=== PATIENT | female | born 1960 | race Caucasian/White ===

== ENCOUNTER 2017-09-24 10:14 | Observation (INO) | payer BC ==
[~2017-09-24] VITALS: Ht 177.8 cm; Wt 113.9 kg
[~2017-09-24 10:14] MED LIST: ALBU8.5H2 IH; ASPI-875 PO; BENZ200C25 PO; CYAN500T44 PO; D-ME120L26 PO; DIPH25TA82 PO; FLUT1DIS26 IH; HYDR50CA3 PO; IBP800T PO; IOPHEN C NR; LEVA1.25 IH; LEVO750T6 PO; LORA10TA7 PO; METH4TAB PO; MTP100TCR PO; OMEG-59 PO; OMEP20CA12 PO; SIMV40TA4 PO
[2017-09-24] MEDS ORDERED: LACTATED RINGERS 1,000 ML IV ONE (10:28)
--- NOTE | 2017-09-24 10:37 | ED Fall/Injury ---
General Chief Complaint: Trauma-Non Activation Stated Complaint: FALL Source: patient, EMS History of Present Illness Time seen by provider: 10:15 Initial Comments PT ARRIVES VIA EMS FROM HOME--NOT IMMOBILIZED AND SITTING UP PT STATES HER BOOT CAUGHT ON A STEP AND SHE FELL DOWN AT LEAST 6 STEPS, HITTING HER FACE ON THE WALL WHEN SHE FELL NO LOSS OF CONSCIOUSNESS C/O SEVERE PAIN TO FACE, ESPECIALLY HER MOUTH--HAS SIGNIFICANT MOUTH AND LIP TRAUMA NO NECK OR BACK PAIN --BUT DOES HAVE PAIN IN LOWER BACK WHEN LOG-ROLLED NO EXTREMITY PAIN --BUT DOES HAVE SIGNIFICANT PAIN TO LEFT KNEE AND LEFT LOWER LEG ON EXAM. NO PARESTHESIAS OR MOTOR DEFICITS NO HEADACHE NO VISION CHANGES NO DIZZINESS NO CHEST PAIN OR SHORTNESS OF BREATH PT IMMEDIATELY PLACED IN CERVICAL COLLAR AND LAID FLAT PCP: DR. GUZMAN Allergies and Home Medications Allergies Uncoded Allergies: SULFA (Allergy, Unknown, 12/09/12) Home Medications Albuterol 8.5 Gm Hfa.aer.ad, 8.5 GM IH Q6H, (Reported) 2 PUFFS Aspirin 81 Mg Tablet.dr, 81 MG PO, (Reported) Benzonatate 200 Mg Capsule, 1 EACH PO Q8HR, #20 Prescribed by: TERE MURDOCK on 12/10/12 0211 Cyanocobalamin (Vitamin B-12) 500 Mcg Tablet, 500 MCG PO, (Reported) D-Methorphan/Acetamin/Doxylamn 120 Ml Liquid, 120 ML PO, (Reported) Diphenhydramine Hcl 25 Mg Tablet, 2 EACH PO DAILY, (Reported) Fluticasone/Salmeterol 1 Disk Inhp, 1 PUFF IH DAILY, (Reported) 1 PUFF Hydroxyzine Pamoate 50 Mg Capsule, 0.5 EACH PO DAILY, (Reported) Ibuprofen 800 Mg Tablet, 1 EACH PO TID PRN, #30 Prescribed by: TERE MURDOCK on 12/10/12 0211 Levalbuterol Hcl 1.25 Mg/0.5 Ml Vial.neb, 1.25 MG IH, (Reported) Levofloxacin 750 Mg Tablet, 750 MG PO, (Reported) Lifitegrast 1 Each Droperette, (Reported) Loratadine 10 Mg Tablet, 10 MG PO, (Reported) Metformin HCl 500 Mg Tablet, (Reported) Methylprednisolone 4 Mg/Dose-Pack Tab.ds.pk, 0 PO UD, (Reported) Metoprolol Succinate 100 Mg Tab.sr.24h, 1 EACH PO DAILY, (Reported) Independence-3 Fatty Acids/Fish Oil 1 Each Capsule, 1 EACH PO, (Reported) Omeprazole 20 Mg Capsule.dr, 1 CAP PO DAILY, #30 (Reported) Simvastatin 40 Mg Tablet, 60 MG PO, (Reported) [Iophen-C Nr] , (Reported) Constitutional: no symptoms reported Eyes: No Symptoms Reported Ears, Nose, Mouth, Throat: see HPI Respiratory: no symptoms reported Cardiovascular: no symptoms reported Gastrointestinal: no symptoms reported Genitourinary: no symptoms reported Musculoskeletal: see HPI Skin: see HPI Psychiatric/Neurological: No Symptoms Reported Past Lxugjfy-Unwbvz-Tybjun Hx Patient Social History Recent Foreign Travel: No Contact w/Someone Who Travel: No Immunizations Up To Date Tetanus Booster (TDap): Unknown Respiratory Respiratory Disorders: Asthma Reproductive System Hx Reproductive Disorders: No Sexually Transmitted Disease: No HIV/AIDS: No 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 MILD TENDERNESS TO CHIN, BUT NO TENDERNESS TO ANGLE OF MANDIBLE AND ABLE TO OPEN MOUTH. UPPER FRONT TEETH WITH OBVIOUS DEFORMITIES. TENDERNESS, SWELLING AND BRUISING TO TIP OF NOSE, WELL LEFT LATERAL BROW AREA) Neck: tender lateral (SLIGHT), tender midline (SLIGHT), other (IMMEDIATELY PLACED IN CERVICAL COLLAR ON ARRIVAL) Cardiovascular: normal peripheral pulses, regular rate, rhythm, no edema, no JVD, no murmur Respiratory: chest non-tender, normal breath sounds, no respiratory distress, no accessory muscle use Peripheral Pulses: 1+ Dorsalis Pedis (R), 1+ Left Dors-Pedis (L), 1+ Radial Pulses (R), 1+ Radial Pulses (L) Gastrointestinal: normal bowel sounds, non tender, soft, no organomegaly, no pulsatile mass Back: vertebral tenderness (MID LUMBAR AREA ON RIGHT), other (RIGHT POSTERIOR/ LOWER RIB-CVA AREA ) Extremities: normal capillary refill, other (ABRASIONS TO BILATERAL KNEES, ABRASION TO RIGHT POSTERIOR FOREARM, MARKED TENDERNESS TO LEFT KNEE AND ANTERIOR TIB-FIB AREA, WITH MODERTE BRUISING AND SWELLING TO UPPER HALF OF LEFT ANTERIOR TIB-FIB AREA. 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, no motor/sensory deficits, alert, normal mood/affect, oriented x 3 Skin: normal color, warm/dry, ecchymosis, other (MOUTH/LIP LACERATION NOTED ABOVE) Vivi Coma Score Best Eye Response: (4) Open Spontaneously Best Verbal Response: (5) Oriented Best Motor Response: (6) Obeys Commands Vivi Total: 15 Progress/Results/Core Measures Results/Orders Lab Results Laboratory Tests Test 09/24/17 10:39 Range/Units White Blood Count 10.4 4.3-11.0 10^3/uL Red Blood Count 4.46 4.35-5.85 10^6/uL Hemoglobin 13.8 11.5-16.0 G/DL Hematocrit 40 35-52 % Mean Corpuscular Volume 90 80-99 FL Mean Corpuscular Hemoglobin 31 25-34 PG Mean Corpuscular Hemoglobin Concent 35 32-36 G/DL Red Cell Distribution Width 12.8 10.0-14.5 % Platelet Count 257 130-400 10^3/uL Mean Platelet Volume 11.2 H 7.4-10.4 FL Neutrophils (%) (Auto) 69 42-75 % Lymphocytes (%) (Auto) 21 12-44 % Monocytes (%) (Auto) 8 0-12 % Eosinophils (%) (Auto) 1 0-10 % Basophils (%) (Auto) 0 0-10 % Neutrophils # (Auto) 7.2 1.8-7.8 X 10^3 Lymphocytes # (Auto) 2.2 1.0-4.0 X 10^3 Monocytes # (Auto) 0.9 0.0-1.0 X 10^3 Eosinophils # (Auto) 0.1 0.0-0.3 10^3/uL Basophils # (Auto) 0.0 0.0-0.1 10^3/uL Prothrombin Time 12.4 12.2-14.7 SEC INR Comment 0.9 0.8-1.4 Activated Partial Thromboplast Time 26 24-35 SEC Sodium Level 140 135-145 MMOL/L Potassium Level 4.1 3.6-5.0 MMOL/L Chloride Level 107 98-107 MMOL/L Carbon Dioxide Level 21 21-32 MMOL/L Anion Gap 12 5-14 MMOL/L Blood Urea Nitrogen 16 7-18 MG/DL Creatinine 0.97 0.60-1.30 MG/DL Estimat Glomerular Filtration Rate 59 BUN/Creatinine Ratio 16 Glucose Level 110 H 70-105 MG/DL Calcium Level 9.2 8.5-10.1 MG/DL Total Bilirubin 0.9 0.1-1.0 MG/DL Aspartate Amino Transf (AST/SGOT) 25 5-34 U/L Alanine Aminotransferase (ALT/SGPT) 24 0-55 U/L Alkaline Phosphatase 66 40-136 U/L Total Protein 7.1 6.4-8.2 GM/DL Albumin 4.3 3.2-4.5 GM/DL My Orders Orders - FLO MCGRATH K DO Saline Lock/Iv-Start (09/24/17 10:28) Monitor-Rhythm Ecg Trace Only (09/24/17 10:28) Ct Head/Face/Cervical Wo (09/24/17 10:28) Ct Thoracic/Lumbar Spine Wo (09/24/17 10:28) Cbc With Automated Diff (09/24/17 10:28) Comprehensive Metabolic Panel (09/24/17 10:28) Protime With Inr (09/24/17 10:28) Partial Thromboplastin Time (09/24/17 10:28) Chest 1 View, Ap/Pa Only (09/24/17 10:28) Tibia/Fibula, Left, 2 Views (09/24/17 10:28) Knee, Left, 3 Views (09/24/17 10:28) Pelvis (09/24/17 10:28) Saline Lock/Iv-Start (09/24/17 10:28) Lactated Ringers (Lr 1000 Ml Iv Solution (09/24/17 10:28) Ct Chest/Abdomen/Pelvis W (09/24/17 10:37) Iohexol Injection (Omnipaque 350 Mg/Ml 1 (09/24/17 10:45) Ns (Ivpb) (Sodium Chloride 0.9% Ivpb Bag (09/24/17 10:45) Dipht,Pertuss(Acell),Tet Adult (Boostrix (09/24/17 10:45) Fentanyl Injection (Sublimaze Injection (09/24/17 10:43) Cefazolin Injection (Ancef Injection) (09/24/17 12:00) Lidocaine/Epi 2% 1:100,000 (Xylocaine/Ep (09/24/17 12:15) Bupivacaine 0.5% Injection (Sensorcaine (09/24/17 12:57) Medications Given in ED Current Medications Medications Dose Ordered Sig/Eladio Route Start Time Stop Time Status Last Admin Dose Admin Bupivacaine HCl 30 ml STK-MED ONCE .ROUTE 09/24/17 12:57 09/24/17 13:06 DC 09/24/17 13:17 5 ML Cefazolin Sodium 1000 mg/Sodium Chloride 50 ml @ 100 mls/hr ONCE ONCE IV 09/24/17 12:00 09/24/17 12:29 DC 09/24/17 12:21 100 MLS/HR Diphtheria/ Tetanus/Acell Pertussis 0.5 ml ONCE ONCE IM 09/24/17 10:45 09/24/17 10:46 DC 09/24/17 11:51 0.5 ML Iohexol 100 ml ONCE ONCE IV 09/24/17 10:45 09/24/17 10:46 DC 09/24/17 11:14 100 ML Lactated Ringer's 1,000 ml @ 0 mls/hr Q0M ONCE IV 09/24/17 10:28 09/24/17 10:31 DC 09/24/17 10:36 1,000 MLS/HR Lidocaine/ Epinephrine 20 ml ONCE ONCE INJ 09/24/17 12:15 09/24/17 12:16 DC 09/24/17 13:16 20 ML Sodium Chloride 100 ml ONCE ONCE IV 09/24/17 10:45 09/24/17 10:46 DC 09/24/17 11:14 80 ML Vital Signs/I&O Vital Sign - Last 12Hours 09/24/17 10:14 Temp 98.0 Pulse 78 Resp 18 B/P (MAP) 197/97 Intake and Output 09/25/17 00:00 Intake Total 1050 ml Balance 1050 ml Progress Note : Progress Note NO DETERIORATION IN PTS' CONDITION DURING ER STAY C-COLLAR REMOVED AT [address] RESULTS OBTAINED. Diagnostic Imaging Comments CT HEAD/MAXILLOFACIALS /CERVICAL SPINE-NO ACUTE INTRACRANIAL FRACTURES, FRACTURES OF NASAL SPINE AND SEPTUM WITH DISPLACEMENT; NO CERVICAL SPINE ACUTE PROCESS--PER RADIOLOGIST REPORT @ 1150 CT THORACIC/LUMBAR SPINE--FX L2 RIGHT TRANSVERSE PROCESS, OLD APPEARING FRACTURE L1 RIGHT TRANSVERSE PROCESS--PER RADIOLOGIST REPORT @ 1155 XRAYS: CXR--NO ACUTE PROCESS PELVIS--NO ACUTE PROCESS LEFT KNEE--NO ACUTE PROCESS LEFT TIB-FIB--NO ACUTE PROCESS ALL PER RADIOLOGIST REPORTS @ 1202 CT CHEST/ABDOMEN/PELVIS--NO ACUTE PROCESS, PER RADIOLOGIST REPORT @ 1212 Reviewed: Reviewed by Me Departure Communication (Admissions) Progress Notes 1049--SPOKE WITH DR. GENAO, HE IS AVAILABLE FOR CONSULT THIS WEEKEND--WILL CALL HIM BACK WITH TEST RESULTS 1144/1145--PAGED/SPOKE WITH DR. RODRIGUEZ, ACCEPTS PT FOR ADMIT. WOULD LIKE DR. GENAO TO DO REPAIR OF LIP LACERATION. 1205--SPOKE WITH DR. GENAO AGAIN. DISCUSSED CT SCAN FINDINGS, HE WILL BE IN TO SEE PT 1230--DR. GENAO HERE TO DO REPAIR OF LIP LACERATION 1325--UPDATE GIVEN TO DR. RODRIGUEZ, HE WOULD LIKE ORTHO CONSULT FOR L2 TRANSVERSE PROCESS FRACTURE 1335--SPOKE WITH DR. AWAD AND INFORMED HIM OF CONSULT. Impression Impression: Primary Impression: S/P FALL DOWN STAIRS Additional Impressions: Facial trauma COMPLEX UPPER LIP LACERATION Dental injury Nasal bone fractures FRACTURE L2 RIGHT TRANSVERSE PROCESS Contusion of left knee and lower leg Disposition: ADMITTED INPATIENT Condition: Stable Admissions Decision to Admit Reason: Admit from ER (Trauma) Decision to Admit/Date: Sep 24, 2017 Time/Decision to Admit Time: 11:45 Departure-Patient Inst. Referrals: SANTIAGO GUZMAN DO (PCP/Family) Primary Care Physician FLO MCGRATH DO Sep 24, 2017 10:37
[2017-09-24] MEDS ORDERED: fentaNYL INJECTION 100 MCG/2 ML AMP IVP STA (10:43)
[2017-09-24] MEDS ORDERED: LIFI1DRO OU (10:43)
[2017-09-24] MEDS ORDERED: METF500T4 PO (10:43)
--- OUTSIDE RECORDS SUMMARY | 2017-09-24 10:43 | XMS REPORT | Continuity of Care Document ---
Author Author [facility] Organization [facility] Address Unknown Phone Unavailable Allergies Medications Problems Procedures Results Encounters ACCT No. Visit Date/Time Discharge Status Pt. Type Provider Facility Loc./Unit Complaint [id number] 03/28/2013 10:23:00 2012 23:59:59 CLS Outpatient
[2017-09-24] MEDS ORDERED: NS 100 ML (IVPB) BAG IV ONE (10:45)
[2017-09-24] MEDS ORDERED: TETANUS,DIPTH,PERTUSS P/F (BOOSTRIX) 0.5 ML VIAL IM ONE (10:45)
[2017-09-24] MEDS ORDERED: IOHEXOL 350 MG/ML 100 ML (OMNIPAQUE 350) VIAL IV ONE (10:45)
[2017-09-24 10:50] LABS: BASOPHILS % (AUTO) 0 % (0-10); EOSINOPHILS # (AUTO) 0.1 10^3/uL (0.0-0.3); EOSINOPHILS % (AUTO) 1 % (0-10); LYMPHOCYTES # (AUTO) 2.2 X 10^3 (1.0-4.0); LYMPHOCYTES % (AUTO) 21 % (12-44); MEAN CORPUSCULAR HEMOGLOBIN 31 PG (25-34); MEAN CORPUSCULAR HGB CONC 35 G/DL (32-36); MEAN CORPUSCULAR VOLUME 90 FL (80-99); MEAN PLATELET VOLUME 11.2 FL (7.4-10.4); MONOCYTES # (AUTO) 0.9 X 10^3 (0.0-1.0); MONOCYTES % (AUTO) 8 % (0-12); NEUTROPHILS # (AUTO) 7.2 X 10^3 (1.8-7.8); NEUTROPHILS % (AUTO) 69 % (42-75); PLATELET COUNT 257 10^3/uL (130-400); RED BLOOD COUNT 4.46 10^6/uL (4.35-5.85); RED CELL DISTRIBUTION WIDTH 12.8 % (10.0-14.5); WHITE BLOOD COUNT 10.4 10^3/uL (4.3-11.0)
[2017-09-24 10:56] LABS: INR 0.9 (0.8-1.4); PROTHROMBIN TIME PATIENT 12.4 SEC (12.2-14.7)
[2017-09-24 11:07] LABS: ALBUMIN 4.3 GM/DL (3.2-4.5); BILIRUBIN,TOTAL 0.9 MG/DL (0.1-1.0); CALCIUM 9.2 MG/DL (8.5-10.1); CREATININE SERUM 0.97 MG/DL (0.60-1.30); POTASSIUM 4.1 MMOL/L (3.6-5.0); TOTAL PROTEIN 7.1 GM/DL (6.4-8.2)
--- NOTE | 2017-09-24 11:31 | Diagnostic Imaging Report ---
PROCEDURE: CT head, face, and cervical spine without contrast. TECHNIQUE: Multiple contiguous axial images were obtained through the head, neck, and facial bones without the use of intravenous contrast. Sagittal and coronal reformations through the cervical spine and facial bones were also performed. INDICATION: Trauma, post fall down stairs. Trauma to face. CORRELATION STUDY: None FINDINGS: CT HEAD: The ventricles and sulci unremarkable. No midline shift or mass effect. Normal cole-white differentiation. No acute intracranial hemorrhage. Basilar cisterns are maintained. Bony calvarium intact. CT MAXILLOFACIAL: Relatively nondisplaced fractures of the inferior nasal bone. There is also fracture involving the anterior inferior aspect of the nasal septum and rightward displaced nasal spine. Associated significant perinasal soft tissue swelling as was gas collections compatible with laceration. Asymmetric areas of mucosal thickening present. Air-fluid level of the left maxillary sinus present. However, no findings to suggest a maxillary sinus fracture. The orbital armendariz including floors intact. Globes symmetric with retro-orbital structures appearing unremarkable. Pterygoid plates and zygomatic arch intact. Mandible including temporomandibular joints maintained. CT CERVICAL SPINE: Cervical spine alignment anatomic. Vertebral body heights maintained. Asymmetric disc space narrowing particularly at C3-C4 and C5-C6 level. Mildly prominent endplate osteophytes particularly at C3-C4 level does result in osseous narrowing of the foramina greatest on the right. Posterior elements intact. Odontoid intact. Mild ossification interposed between the spinous processes of T1 and T2 level. IMPRESSION: CT HEAD: 1. Negative for acute traumatic intracranial abnormality. CT MAXILLOFACIAL: 1. Nondisplaced fractures of the inferior nasal bones with fracture of the anterior inferior nasal septum with rightward displacement of the nasal spine. Associated soft tissue swelling and gas collections. CT CERVICAL SPINE: 1. Negative for acute fracture or traumatic subluxation. 2. Slight asymmetric areas of disc space narrowing particularly at C3-C4 level which does result in some osseous narrowing of the foramina. Dictated by: Dictated on workstation # [id number]
--- NOTE | 2017-09-24 11:40 | Diagnostic Imaging Report ---
INDICATION: Status post fall down stairs. Low back pain. TECHNIQUE: Noncontrast CT imaging of the thoracic and lumbar spine with sagittal and coronal reformatted images. Correlation study: None FINDINGS: Thoracic spine: Thoracic spinal alignment is anatomic. Thoracic vertebral body heights maintained. Mild diffuse disc space narrowing is noted. The posterior elements appear to be intact. No hydro gastric narrowing of the spinal canal and/or foramina. Mildly prominent anterior osteophytes including bridging osteophytes are present. Visualized posterior ribs appear unremarkable. Lumbar spine: Lumbar spinal alignment is anatomic. Lumbar vertebral body heights maintained. Diffuse disc space narrowing particularly L1-L2 and L2-L3. Posterior elements without spondylolysis. There is moderate disc osteophyte complex L4-5 level resulting in foraminal narrowing. May be an old left L1 transverse process fracture. Very questionable subtle nondisplaced right L2 transverse process fracture. Mild to moderate trefoil type spinal canal narrowing through the lumbar spine. Heart size is noted to be enlarged. IMPRESSION: 1. Negative for acute fracture of thoracic spine. 2. Very questionable nondisplaced of fracture the tip of the right L2 transverse process. Clinical correlation regarding pain. Likely old left L1 transverse process fracture. Lumbar spine otherwise negative acute abdomen. Dictated by: Dictated on workstation # [id number]
--- NOTE | 2017-09-24 11:51 | Diagnostic Imaging Report ---
INDICATION: Fell downstairs. Chest pain A single view of the chest shows normal heart size and vascularity. The lungs are clear. There is no effusion or pneumothorax. There are sclerotic changes of left first rib which may be due to dysplasia but no acute bony abnormality is seen with no change from 12/10/12. IMPRESSION: No acute abnormality is seen. Dictated by: Dictated on workstation # [id number]
--- NOTE | 2017-09-24 11:52 | Diagnostic Imaging Report ---
INDICATION: Fell down stairs. Pelvic pain. FINDINGS: A single view of the pelvis shows no fracture, dislocation or other acute abnormality. IMPRESSION: No acute abnormality is seen. Dictated by: Dictated on workstation # [id number]
--- NOTE | 2017-09-24 11:55 | Diagnostic Imaging Report ---
INDICATION: Fell down stairs. Left knee pain AP and lateral views of the left tibia and fibula show no fracture, dislocation or other abnormality. IMPRESSION: Normal left tibia and fibula. Dictated by: Dictated on workstation # [id number]
--- NOTE | 2017-09-24 11:56 | Diagnostic Imaging Report ---
INDICATION: Fell down stairs. Left knee pain 3 views of the left knee show no fracture, dislocation or other acute abnormality. IMPRESSION: No acute abnormality is seen. Dictated by: Dictated on workstation # [id number]
[2017-09-24] MEDS ORDERED: ceFAZolin INJECTION 1,000 MG in NS (IVPB) 50 ML IV ONE (12:00)
--- NOTE | 2017-09-24 12:04 | Diagnostic Imaging Report ---
PROCEDURE: CT chest, abdomen, and pelvis with contrast. INDICATION: Trauma, fall down stairs. No current complaints of the chest, abdomen, or pelvis. TECHNIQUE: CT imaging of the chest, abdomen, and pelvis following the administration of intravenous contrast. CORRELATION STUDY: None. FINDINGS: CT CHEST: Heart size is at the upper limits of normal. Thoracic aorta is unremarkable. No intraluminal abnormalities suggested. No mediastinal hematoma. No pathologically enlarged lymphadenopathy. EG junction is unremarkable. Lung wolfe are clear without evidence for infiltrate or contusion. No significant effusion or pneumothorax. Tiny subpleural nodule in the right lower lobe may reflect perhaps granuloma but is somewhat indeterminate. Osseous structures in the chest demonstrate no acute displaced fracture. CT ABDOMEN and PELVIS: Liver, spleen, pancreas, adrenal glands, and abdominal aorta are unremarkable. Kidneys with normal enhancement. Tiny gallstone. No abdominal ascites or free air. Gastrointestinal tract with mild severity fecal retention. Urinary bladder is unremarkable. Uterus is absent. Osseous structures in the pelvis are intact. IMPRESSION: CT CHEST: 1. Negative for acute traumatic abnormality about the chest. 2. Small nodule in the right lower lobe. This may reflect a granuloma but definitive calcification not demonstrated. CT ABDOMEN and PELVIS: 1. Negative for acute traumatic abnormality about the abdomen and/or pelvis. Dictated by: Dictated on workstation # [id number]
[2017-09-24] MEDS ORDERED: LIDOCAINE/EPI 2% 1:100,00 (XYLOCAINE) 20 ML VIAL INJ ONE (12:15)
[2017-09-24] MEDS ORDERED: BUPIVACAINE 0.5% 30 ML (SENSORCAINE) VIAL ONE (12:57)
--- OUTSIDE RECORDS SUMMARY | 2017-09-24 14:25 | XMS REPORT | Continuity of Care Document ---
Author Author [facility] Organization [facility] Address Unknown Phone Unavailable Allergies Medications Problems Procedures Results Test Result Range Complete blood count (CBC) with automated white blood cell (WBC) differential - 09/24/17 10:39 Blood leukocytes automated count (number/volume) 10.4 10*3/ uL 4.3-11.0 Blood erythrocytes automated count (number/volume) 4.46 10*6 /uL 4.35-5.85 Venous blood hemoglobin measurement (mass/volume) 13.8 g/dL 11.5-16.0 Blood hematocrit (volume fraction) 40 % 35-52 Automated erythrocyte mean corpuscular volume 90 [foz_us] 80-99 Automated erythrocyte mean corpuscular hemoglobin (mass per erythrocyte) 31 pg 25-34 Automated erythrocyte mean corpuscular hemoglobin concentration measurement ( mass/volume) 35 g/dL 32-36 Automated erythrocyte distribution width ratio 12.8 % 10.0-14.5 Automated blood platelet count (count/volume) 257 10*3/uL 130-400 Automated blood platelet mean volume measurement 11.2 [foz_ us] 7.4-10.4 Automated blood neutrophils/100 leukocytes 69 % 42-75 Automated blood lymphocytes/100 leukocytes 21 % 12-44 Blood monocytes/100 leukocytes 8 % 0-12 Automated blood eosinophils/100 leukocytes 1 % 0-10 Automated blood basophils/100 leukocytes 0 % 0-10 Blood neutrophils automated count (number/volume) 7.2 10*3 1.8-7.8 Blood lymphocytes automated count (number/volume) 2.2 10*3 1.0-4.0 Blood monocytes automated count (number/volume) 0.9 10*3 0.0-1.0 Automated eosinophil count 0.1 10*3/uL 0.0-0.3 Automated blood basophil count (count/volume) 0.0 10*3/uL 0.0-0.1 PT panel in platelet poor plasma by coagulation assay - 09/24/17 10:39 Prothrombin time (PT) in platelet poor plasma by coagulation assay 12.4 s 12.2-14.7 INR in platelet poor plasma or blood by coagulation assay 0.9 0.8-1.4 Activated partial thromboplastin time (aPTT) in platelet poor plasma bycoagulation assay - 09/24/17 10:39 Activated partial thromboplastin time (aPTT) in platelet poor plasma bycoagulation assay 26 s 24-35 Comprehensive metabolic panel - 09/24/17 10:39 Serum or plasma sodium measurement (moles/volume) 140 mmol/ L 135-145 Serum or plasma potassium measurement (moles/volume) 4.1 mmol/L 3.6-5.0 Serum or plasma chloride measurement (moles/volume) 107 mmol /L 98-107 Carbon dioxide 21 mmol/L 21-32 Serum or plasma anion gap determination (moles/volume) 12 mmol/L 5-14 Serum or plasma urea nitrogen measurement (mass/volume) 16 mg/dL 7-18 Serum or plasma creatinine measurement (mass/volume) 0.97 mg /dL 0.60-1.30 Serum or plasma urea nitrogen/creatinine mass ratio 16 NRG Serum or plasma creatinine measurement with calculation of estimated glomerular filtration rate 59 NRG Serum or plasma glucose measurement (mass/volume) 110 mg/dL 70-105 Serum or plasma calcium measurement (mass/volume) 9.2 mg/dL 8.5-10.1 Serum or plasma total bilirubin measurement (mass/volume) 0.9 mg/dL 0.1-1.0 Serum or plasma alkaline phosphatase measurement (enzymatic activity/volume) 66 U/L 40-136 Serum or plasma aspartate aminotransferase measurement (enzymatic activity/ volume) 25 U/L 5-34 Serum or plasma alanine aminotransferase measurement (enzymatic activity/volume ) 24 U/L 0-55 Serum or plasma protein measurement (mass/volume) 7.1 g/dL 6.4-8.2 Serum or plasma albumin measurement (mass/volume) 4.3 g/dL 3.2-4.5 Encounters ACCT No. Visit Date/Time Discharge Status Pt. Type Provider Facility Loc./Unit Complaint [id number] 03/28/2013 10:23:00 2012 23:59:59 CLS Outpatient [id number] 09/24/2017 10:52:00 Document Registration
[2017-09-24] MEDS ORDERED: fentaNYL INJECTION 100 MCG/2 ML AMP IV PRN ×2 (14:45→18:45)
[2017-09-24] MEDS ORDERED: METO200T32 PO (15:01)
[2017-09-24] MEDS ORDERED: ALBU18HF2 IH (15:01)
[2017-09-24] MEDS ORDERED: FLUT1DIS26 IH (15:01)
[2017-09-24] MEDS ORDERED: SIMV40TA4 PO (15:01)
[2017-09-24] MEDS ORDERED: MELO15TA39 PO (15:01)
[2017-09-24] MEDS ORDERED: OMEP20CA12 PO (15:01)
[2017-09-24] MEDS: LACTATED RINGERS 1,000 ML IV SCH ×2 (15:01→21:44)
[2017-09-24] MEDS ORDERED: INFLUENZA TRIvalent 2017-2018 0.5 ML/45 MCG SYR IM ONE (15:45)
[2017-09-24 16:15] VITALS: BP 152/74
[2017-09-24] MEDS ORDERED: OMEG-160 PO (17:06)
[2017-09-24] MEDS ORDERED: IPRA3AMP IH (17:06)
[2017-09-24] MEDS ORDERED: L.AC1CAP6 PO (17:06)
[2017-09-24] MEDS ORDERED: ASPI-983 PO (17:06)
[2017-09-24] MEDS ORDERED: LORA10TA7 PO (17:06)
[2017-09-24] MEDS ORDERED: [UNRECOGNIZED DRUG - OTHER] PO (17:06)
[2017-09-24] MEDS ORDERED: UBID100C44 PO (17:06)
[2017-09-24 17:18] VITALS: BP 172/83
[2017-09-24 18:06] VITALS: BP 185/73
--- NOTE | 2017-09-24 18:12 | History & Physicial (CHS) ---
HPI History of Present Illness: Patient is seen today in no acute distress lying in bed. Patient was admitted from the ED after falling down six stairs and hitting her face on a window sill. Patient does not know what caused her to fall and denies syncope and vertigo. Patient states that it is hard to breathe out of her nostrils because they are packed with blood and would like the blood out. Patient reports pain in her legs and her upper lip. During the interview, patient reports new left shoulder pain that felt "on fire." Source: patient, family Exam Limitations: no limitations Date seen by provider: Sep 24, 2017 Time Seen by Provider: 17:30 Attending Physician Leilani West DO Consult Date of Admission Sep 24, 2017 at 13:32 Home Medications Home Medications Reviewed patient Home Medication Reconciliation Form Allergies Uncoded Allergies: SULFA (Allergy, Unknown, 12/09/12) UHU-Awqjsj-Cxoqwd Hx Patient Social History Marrital Status: Employed/Student: employed Alcohol Use: Denies Use Recreational Drug Use: No Smoking Status: Never a Smoker Recent Foreign Travel: No Contact w/other who traveled: No Recent Infectious Disease Expo: No Physical Abuse Screen: No Sexual Abuse: No Immunizations Up To Date Tetanus Booster (TDap): Unknown Past Medical History Hypertension Review of Systems (CHC) EENTM: mouth pain Musculoskeletal: other (leg pain ) Skin: other (abrasiona ) Reviewed Test Results Reviewed Test Results Lab Laboratory Tests 09/24/17 10:39: White Blood Count 10.4, Red Blood Count 4.46, Hemoglobin 13.8, Hematocrit 40, Mean Corpuscular Volume 90, Mean Corpuscular Hemoglobin 31, Mean Corpuscular Hemoglobin Concent 35, Red Cell Distribution Width 12.8, Platelet Count 257, Mean Platelet Volume 11.2H, Neutrophils (%) (Auto) 69, Lymphocytes (%) (Auto) 21 , Monocytes (%) (Auto) 8, Eosinophils (%) (Auto) 1, Basophils (%) (Auto) 0, Neutrophils # (Auto) 7.2, Lymphocytes # (Auto) 2.2, Monocytes # (Auto) 0.9, Eosinophils # (Auto) 0.1, Basophils # (Auto) 0.0, Prothrombin Time 12.4, INR Comment 0.9, Activated Partial Thromboplast Time 26, Sodium Level 140, Potassium Level 4.1, Chloride Level 107, Carbon Dioxide Level 21, Anion Gap 12, Blood Urea Nitrogen 16, Creatinine 0.97, Estimat Glomerular Filtration Rate 59, BUN/Creatinine Ratio 16, Glucose Level 110H, Calcium Level 9.2, Total Bilirubin 0.9, Aspartate Amino Transf (AST/SGOT) 25, Alanine Aminotransferase (ALT/SGPT) 24, Alkaline Phosphatase 66, Total Protein 7.1, Albumin 4.3 Physical Exam-([facility]) Physical Exam Vital Signs VS - Last 72 Hours, by Label 09/24/17 09/24/17 09/24/17 09/24/17 10:14 14:08 16:15 17:18 Temp 98.0 97.8 98.1 Pulse 78 76 65 66 Resp 18 18 16 16 B/P (MAP) 197/97 152/74 172/83 Pulse Ox 98 96 98 O2 Delivery Room Air Room Air Capillary Refill : Less Than 3 Seconds General Appearance: WD/WN, mild distress HEENT: other (laceration of the upper lip that was sutured in ER ) Neck: non-tender Gastrointestinal: non tender Extremities: other (echymosis and hematoma on left lateral leg, exquisite tenderness over left shoulder, diffuse abrasions ) Neurologic/Psychiatric: alert, oriented x 3 Skin: ecchymosis (on left lateral leg), other (abrasions) Clinical Quality Measures DVT/VTE Risk/Contraindication: Risk Factor Score Per Nursin RFS Level Per Nursing on Admit: 2=Moderate Assessment/Plan Assessment/Plan Admission Dx Patient admitted SCOTT GRIFFITHS MED STUDENT Sep 24, 2017 18:12
--- NOTE | 2017-09-24 18:18 | Diagnostic Imaging Report ---
INDICATION: Fall down stairs. EXAM: Left shoulder. FINDINGS: Two views show no fracture or dislocation. AC joint is in good alignment with mild hypertrophic bony changes. IMPRESSION: Mild hypertrophic degenerative changes, otherwise negative left shoulder. Dictated by: Dictated on workstation # [id number]
--- NOTE | 2017-09-24 18:20 | History & Physicial ---
History of Present Illness History of Present Illness Reason for visit/HPI Patient is seen today in no acute distress lying in bed. Patient was admitted from the ED after falling down six stairs and hitting her face on a window sill. Patient does not know what caused her to fall and denies syncope and vertigo. Patient states that it is hard to breathe out of her nostrils because they are packed with blood and would like the blood out. Patient reports pain in her legs and her upper lip. During the interview, patient reports new left shoulder pain that felt "on fire." Date of Admission Sep 24, 2017 at 13:32 Date Seen by Provider: Sep 24, 2017 Time Seen by Provider: 17:[address] Malik Antoine Admitting Physician Dr. Malik Antoine Consult Allergies and Home Medications Allergies Uncoded Allergies: SULFA (Allergy, Unknown, 12/09/12) Home Medications Albuterol Sulfate 18 Gm Hfa.aer.ad, 2 PUFF IH Q6H PRN for SHORTNESS OF BREATH, ( Reported) Aspirin 81 Mg Tablet.dr, 81 MG PO DAILY, (Reported) Fluticasone/Salmeterol 1 Each Blst.w.dev, 1 PUFF IH BID, (Reported) Ipratropium/Albuterol Sulfate 3 Ml Ampul.neb, 1 VIAL IH BID PRN for SHORTNESS OF BREATH, (Reported) L.acidoph & Paracasei,B.lactis 1 Each Capsule, 1 CAP PO AC, (Reported) Lifitegrast 1 Each Droperette, 1 DROP OU BID, (Reported) Loratadine 10 Mg Tablet, 10 MG PO DAILY, (Reported) Meloxicam 15 Mg Tablet, 15 MG PO DAILY, (Reported) Metformin HCl 500 Mg Tablet, 500 MG PO 1200, (Reported) Metoprolol Succinate 200 Mg Tab.er.24h, 200 MG PO DAILY, (Reported) [place]-3/Dha/Epa/Fish Oil 1 Each Capsule, 2,000 MG PO DAILY, (Reported) TAKES 2 (1,000 MG) CAPSULES Omeprazole 20 Mg Capsule.dr, 20 MG PO DAILY, (Reported) Simvastatin 40 Mg Tablet, 40 MG PO HS, (Reported) Ubidecarenone 100 Mg Capsule, 100 MG PO DAILY, (Reported) [Real Dose Nutrition] , 1 CAP PO AC, (Reported) Past Urzacbo-Lpqaur-Udcusg Hx Patient Social History Marrital Status: Employed/Student: employed Alcohol Use: Denies Use Recreational Drug Use: No Smoking Status: Never a Smoker Physical Abuse Screen: No Sexual Abuse: No Recent Foreign Travel: No Contact w/other who traveled: No Recent Infectious Disease Expo: No Immunizations Up To Date Tetanus Booster (TDap): Unknown Surgeries Yes Hysterectomy Respiratory Yes Cardiovascular Yes High Cholesterol, Hypertension Neurological Yes (TRIGEMINAL NEURALGIA) Reproductive System Hx Reproductive Disorders: No Sexually Transmitted Disease: No HIV/AIDS: No 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 Genitourinary No Gastrointestinal No Musculoskeletal No Endocrine History of Endocrine Disorders: Yes Endocrine Disorders: Diabetes, Non-Insulin dep HEENT History of HEENT Disorders: No Cancer No Psychosocial History of Psychiatric Problem: No Integumentary History of Skin or Integumenta: No Blood Transfusions History of Blood Disorders: No Adverse Reaction to a Blood Tr: No Constitutional: no symptoms reported EENTM: mouth pain, nose congestion Respiratory: no symptoms reported Cardiovascular: no symptoms reported Gastrointestinal: no symptoms reported Genitourinary: no symptoms reported Musculoskeletal: see HPI Skin: other (abrasions) Physical Exam Vital Signs Vital Sign - Last 12Hours 09/24/17 09/24/17 09/24/17 10:14 14:08 16:15 Temp 98.0 Pulse 78 Resp 18 B/P (MAP) 197/97 Pulse Ox 98 O2 Delivery Room Air Capillary Refill : Less Than 3 Seconds General Appearance: No Apparent Distress HEENT: Other (midline lip laceration s/p repair by Dr. Davis) Gastrointestinal: Non Tender Extremity: Other (ecchymosis and hematoma on left lateral leg, exquisite tenderness to palpation of left shoulder) Neurologic/Psychiatric: Alert, Oriented x3 Skin: Normal Color, Ecchymosis, Other (diffuse abrasions ) Assessment/Plan Assessment and Plan Admitted from the ER s/p falling down stairs -will restart all home meds but hold aspirin -start with liquid diet and advance as tolerated Fracture of L2 transverse process -consult ortho, they will see in AM Facial trauma -midline upper lip laceration s/p repair by Dr. Davis -nasal bone fracture and dental injury present Contusion of left knee and lower leg -apply ice to the area L shoulder tenderness -will obtain 2 view X-ray of L shoulder Hypertension -prior to admission patient takes metoprolol, patient reports she took the dose this AM -BP is currently uncontrolled, will give 5 mg of metoprolol IV, recheck pressure 10 min after, and give 5 more mg if systolic is still above 140 mmHg; continue this q4h PRN -start telemetry Pain control -percocet -fentanyl 50-100 mcg IV q1h PRN Nausea -4 mg zofran PRN Problems: Clinical Quality Measures DVT/VTE Risk/Contraindication: Risk Factor Score Per Nursin RFS Level Per Nursing on Admit: 2=Moderate SCOTT GRIFFITHS MED STUDENT Sep 24, 2017 18:20
[2017-09-24] MEDS ORDERED: PATIENT MAY USE OWN MEDS, ALL MC SCH (18:30)
[2017-09-24] MEDS: meTOprolol 5 MG/5 ML (LOPRESSOR) VIAL IV PRN (18:35)
[2017-09-24] MEDS: oxyCODONE/APAP 5/325MG (PERCOCET 5) TABLET PO PRN (18:56)
[2017-09-24 19:22] VITALS: BP 180/83
[2017-09-24] MEDS ORDERED: RT-ALBUTEROL HFA (VENTOLIN) PER PUFF IH PRN (19:30)
[2017-09-24] MEDS ORDERED: meTOprolol TARTRATE 50 MG (LOPRESSOR) TAB PO ONE (20:15)
[2017-09-24] MEDS ORDERED: NON-FORMULARY MEDICATION 1 EA EA (Lifitegrast (Xiidra) 1 DROP) OU SCH (21:00)
[2017-09-24] MEDS ORDERED: SIMvastatin 40 MG (ZOCOR) TAB PO SCH (21:00)
[2017-09-24] MEDS ORDERED: NON-FORMULARY MEDICATION 1 EA EA (Fluticasone/Salmeterol (Advair 250-50 Diskus) 1 PUFF) IH SCH (21:00)
[2017-09-24 21:20] VITALS: BP 148/67
[2017-09-24] MEDS: ceFAZolin 1 GM/NS 50 ML IVPB IV SCH ×2 (21:45)
[2017-09-25] VITALS: BP 135/72
[2017-09-25 04:00] VITALS: BP 195/80
[2017-09-25] MEDS: LACTATED RINGERS 1,000 ML IV SCH ×2 (05:05→10:51)
[2017-09-25] MEDS: ceFAZolin 1 GM/NS 50 ML IVPB IV SCH ×2 (05:08)
[2017-09-25] MEDS ORDERED: NON-FORMULARY MEDICATION 1 EA EA (L.acidoph & Paracasei,B.lactis (Probiotic) 1 CAP) PO SCH (06:00)
[2017-09-25 07:11] LABS: BASOPHILS % (AUTO) 0 % (0-10); EOSINOPHILS # (AUTO) 0.1 10^3/uL (0.0-0.3); EOSINOPHILS % (AUTO) 2 % (0-10); LYMPHOCYTES # (AUTO) 1.9 X 10^3 (1.0-4.0); LYMPHOCYTES % (AUTO) 28 % (12-44); MEAN CORPUSCULAR HEMOGLOBIN 30 PG (25-34); MEAN CORPUSCULAR HGB CONC 33 G/DL (32-36); MEAN CORPUSCULAR VOLUME 91 FL (80-99); MEAN PLATELET VOLUME 11.3 FL (7.4-10.4); MONOCYTES # (AUTO) 0.9 X 10^3 (0.0-1.0); MONOCYTES % (AUTO) 13 % (0-12); NEUTROPHILS # (AUTO) 3.7 X 10^3 (1.8-7.8); NEUTROPHILS % (AUTO) 56 % (42-75); PLATELET COUNT 226 10^3/uL (130-400); RED BLOOD COUNT 4.05 10^6/uL (4.35-5.85); WHITE BLOOD COUNT 6.6 10^3/uL (4.3-11.0)
[2017-09-25] MEDS ORDERED: RT-ALBUTEROL SULF 2.5 MG/3 ML PRE-MIX VIAL IH PRN (07:30)
[2017-09-25 07:31] LABS: ALANINE AMINOTRANSFERASE 18 U/L (0-55); ALBUMIN 3.6 GM/DL (3.2-4.5); ANION GAP 10 MMOL/L (5-14); ASPARTATE AMINO TRANSFERASE 19 U/L (5-34); BILIRUBIN,TOTAL 1.2 MG/DL (0.1-1.0); BLOOD UREA NITROGEN 10 MG/DL (7-18); BUN/CREATININE RATIO 12; CALCIUM 8.8 MG/DL (8.5-10.1); CARBON DIOXIDE 23 MMOL/L (21-32); CHLORIDE 108 MMOL/L (98-107); CREATININE SERUM 0.81 MG/DL (0.60-1.30); GFR ESTIMATED > 60; GLUCOSE 103 MG/DL (70-105); POTASSIUM 3.6 MMOL/L (3.6-5.0); SODIUM 141 MMOL/L (135-145); TOTAL PROTEIN 6.1 GM/DL (6.4-8.2)
[2017-09-25] MEDS: meTOprolol 5 MG/5 ML (LOPRESSOR) VIAL IV PRN (07:41)
[2017-09-25] MEDS: oxyCODONE/APAP 5/325MG (PERCOCET 5) TABLET PO PRN ×2 (08:03→12:22)
[2017-09-25] MEDS ORDERED: Fluticasone/Salmeterol (Advair 250-50 Diskus) IH SCH (08:22)
[2017-09-25 08:29] VITALS: BP 194/86
[2017-09-25 08:46] VITALS: BP 174/82
[2017-09-25] MEDS ORDERED: EPA PO SCH (09:00)
[2017-09-25] MEDS ORDERED: OMEGA PO SCH (09:00)
[2017-09-25] MEDS ORDERED: LIFITEGRAST OU SCH (09:00)
[2017-09-25] MEDS ORDERED: LORATADINE (CLARITIN) 10 MG TAB PO SCH (09:00)
[2017-09-25] MEDS ORDERED: SIMvastatin 40 MG (ZOCOR) TAB PO SCH (09:00)
[2017-09-25] MEDS ORDERED: DHA PO SCH (09:00)
[2017-09-25] MEDS ORDERED: Meloxicam 15 MG PO SCH (09:00)
[2017-09-25] MEDS ORDERED: FISH OIL PO SCH (09:00)
[2017-09-25] MEDS ORDERED: OMEPRAZOLE 20 MG (PriLOSEC) CAP PO SCH (09:00)
[2017-09-25] MEDS ORDERED: Metoprolol Succinate 200 MG PO SCH (09:00)
--- NOTE | 2017-09-25 09:17 | Progress Note (SOAP) ---
Subjective Date Seen by Provider: Sep 25, 2017 Time Seen by Provider: 08:45 Subjective/Events-last exam Patient is seen today in no acute distress lying in bed. Patient reports that her pain has improved since yesterday. Patient is able to get out of bed by herself. Patient states she has a "burning" pain in both shoulders (L shoulder > R shoulder), her back (worse when standing), and her left leg. Patient states that she feels a "tight, burning" pain in her upper lip laceration. Patient denies visual changes, chest pain, and shortness of breath. Review of Systems HEENT: Head Aches, Other (clogged nostrils ) Pulmonary: No Dyspnea, No Cough, No Pleuritic Chest Pain, No Other Cardiovascular: No: Chest Pain, Palpitations, Orthopnea, Paroxysmal Noc. Dyspnea, Edema, Lt Headedness, Other Gastrointestinal: No: Nausea, Vomiting, Abdominal Pain, Diarrhea, Constipation , Melena, Hematochezia, Other Genitourinary: No Dysuria, No Frequency, No Incontinence, No Hematuria, No Retention, No Other Musculoskeletal: shoulder pain (bilaterally, L>R), back pain, leg pain (on the L) Objective Exam Vital Signs Date Time Temp Pulse Resp B/P (MAP) Pulse Ox O2 Delivery O2 Flow Rate FiO2 09/25/17 08:53 62 Room Air 09/25/17 08:46 174/82 09/25/17 08:29 98.0 58 20 194/86 96 Room Air 09/25/17 04:00 97.5 59 20 195/80 98 Room Air 09/25/17 01:00 57 09/25/17 00:00 97.7 62 20 135/72 93 Room Air 09/24/17 21:20 98.0 65 20 148/67 92 Room Air 09/24/17 19:22 98.6 64 16 180/83 98 Room Air 09/24/17 19:00 62 09/24/17 18:06 98.3 65 16 185/73 97 Room Air 09/24/17 17:18 98.1 66 16 172/83 98 Room Air 09/24/17 16:15 97.8 65 16 152/74 96 Room Air 09/24/17 14:08 76 18 98 09/24/17 10:14 98.0 78 18 197/97 Capillary Refill : Less Than 3 SecondsLess Than 3 Seconds General Appearance: WD/WN, Anxious HEENT: PERRL/EOMI Respiratory: Chest Non Tender, Lungs Clear, Normal Breath Sounds, No Accessory Muscle Use, No Respiratory Distress Cardiovascular: Regular Rate, Rhythm, No Edema, No Gallop, No JVD, No Murmur, Normal Peripheral Pulses Gastrointestinal: normal bowel sounds, non tender, soft, no organomegaly, no pulsatile mass Extremity: Other (ecchymosis and hematoma in L lateral leg has improved; diffuse abrasions; patient has normal range of motion in both shoulders but experiences tenderness to touch ) Neurologic/Psychiatric: Alert, Oriented x3, No Motor/Sensory Deficits Skin: Normal Color, Warm/Dry, Ecchymosis Results Lab Laboratory Tests 09/24/17 10:39: White Blood Count 10.4, Red Blood Count 4.46, Hemoglobin 13.8, Hematocrit 40, Mean Corpuscular Volume 90, Mean Corpuscular Hemoglobin 31, Mean Corpuscular Hemoglobin Concent 35, Red Cell Distribution Width 12.8, Platelet Count 257, Mean Platelet Volume 11.2H, Neutrophils (%) (Auto) 69, Lymphocytes (%) (Auto) 21 , Monocytes (%) (Auto) 8, Eosinophils (%) (Auto) 1, Basophils (%) (Auto) 0, Neutrophils # (Auto) 7.2, Lymphocytes # (Auto) 2.2, Monocytes # (Auto) 0.9, Eosinophils # (Auto) 0.1, Basophils # (Auto) 0.0, Prothrombin Time 12.4, INR Comment 0.9, Activated Partial Thromboplast Time 26, Sodium Level 140, Potassium Level 4.1, Chloride Level 107, Carbon Dioxide Level 21, Anion Gap 12, Blood Urea Nitrogen 16, Creatinine 0.97, Estimat Glomerular Filtration Rate 59, BUN/Creatinine Ratio 16, Glucose Level 110H, Calcium Level 9.2, Total Bilirubin 0.9, Aspartate Amino Transf (AST/SGOT) 25, Alanine Aminotransferase (ALT/SGPT) 24, Alkaline Phosphatase 66, Total Protein 7.1, Albumin 4.3 09/25/17 06:55: White Blood Count 6.6, Red Blood Count 4.05L, Hemoglobin 12.2, Hematocrit 37, Mean Corpuscular Volume 91, Mean Corpuscular Hemoglobin 30, Mean Corpuscular Hemoglobin Concent 33, Red Cell Distribution Width 13.0, Platelet Count 226, Mean Platelet Volume 11.3H, Neutrophils (%) (Auto) 56, Lymphocytes (%) (Auto) 28 , Monocytes (%) (Auto) 13H, Eosinophils (%) (Auto) 2, Basophils (%) (Auto) 0, Neutrophils # (Auto) 3.7, Lymphocytes # (Auto) 1.9, Monocytes # (Auto) 0.9, Eosinophils # (Auto) 0.1, Basophils # (Auto) 0.0, Sodium Level 141, Potassium Level 3.6, Chloride Level 108H, Carbon Dioxide Level 23, Anion Gap 10, Blood Urea Nitrogen 10, Creatinine 0.81, Estimat Glomerular Filtration Rate > 60, BUN/ Creatinine Ratio 12, Glucose Level 103, Calcium Level 8.8, Total Bilirubin 1.2H , Aspartate Amino Transf (AST/SGOT) 19, Alanine Aminotransferase (ALT/SGPT) 18, Alkaline Phosphatase 62, Total Protein 6.1L, Albumin 3.6 Assessment/Plan Assessment/Plan Assess & Plan/Chief Complaint Admitted from the ER s/p falling down stairs -will continue all home meds and aspirin -continue liquid diet and advance as tolerated -will discharge the patient today with pain medicine, f/u with Dr Davis and PCP Fracture of L2 transverse process -ortho saw patient this AM, ortho states it is ok to discharge Facial trauma -midline upper lip laceration s/p repair by Dr. Davis -nasal bone fracture and dental injury present Contusion of left knee and lower leg -apply ice to the area L shoulder tenderness -X-ray showed hypertrophic degenerative change but no acute injury Hypertension -encourage patient to purchase BP machine and take pressure two times a day -follow up with PCP for management Pain control -continue percocet as outpatient Clinical Quality Measures DVT/VTE Risk/Contraindication: Risk Factor Score Per Nursin RFS Level Per Nursing on Admit: 2=Moderate SCOTT GRIFFITHS MED STUDENT Sep 25, 2017 09:17
--- NOTE | 2017-09-25 09:46 | Consultation ---
History of Present Illness History of Present Illness Patient Consulted On(horacio/time) 09/25/17 09:40 Date Seen by Provider: Sep 25, 2017 Time Seen by Provider: 06:00 History of Present Illness Kat Fontana is a very pleasant 56 y/o WF who we have been consulted for transverse process fracture. She had a fall down steps yesterday and had other injures which have been evaluated and treated. Currently she is laying in bed and states her pain is controlled as long as she doesn't move. She c/o right side low back pain, left hernandez pain, and bilateral shoulder pain. She denies weakness, problems with coordination, balance, fine motor skills. She has had C -CT and L-CT as well as extremity imaging. Allergies and Home Medications Allergies Uncoded Allergies: SULFA (Allergy, Unknown, 12/09/12) Home Medications Albuterol Sulfate 18 Gm Hfa.aer.ad, 2 PUFF IH Q6H PRN for SHORTNESS OF BREATH, ( Reported) Aspirin 81 Mg Tablet.dr, 81 MG PO DAILY, (Reported) Fluticasone/Salmeterol 1 Each Blst.w.dev, 1 PUFF IH BID, (Reported) Ipratropium/Albuterol Sulfate 3 Ml Ampul.neb, 1 VIAL IH BID PRN for SHORTNESS OF BREATH, (Reported) L.acidoph & Paracasei,B.lactis 1 Each Capsule, 1 CAP PO AC, (Reported) Lifitegrast 1 Each Droperette, 1 DROP OU BID, (Reported) Loratadine 10 Mg Tablet, 10 MG PO DAILY, (Reported) Meloxicam 15 Mg Tablet, 15 MG PO DAILY, (Reported) Metformin HCl 500 Mg Tablet, 500 MG PO 1200, (Reported) Metoprolol Succinate 200 Mg Tab.er.24h, 200 MG PO DAILY, (Reported) [place]-3/Dha/Epa/Fish Oil 1 Each Capsule, 2,000 MG PO DAILY, (Reported) TAKES 2 (1,000 MG) CAPSULES Omeprazole 20 Mg Capsule.dr, 20 MG PO DAILY, (Reported) Simvastatin 40 Mg Tablet, 40 MG PO HS, (Reported) Ubidecarenone 100 Mg Capsule, 100 MG PO DAILY, (Reported) [Real Dose Nutrition] , 1 CAP PO AC, (Reported) Past Opknzhl-Imgdhr-Bkqznx Hx Patient Social History Alcohol Use: Denies Use Recreational Drug Use: No Smoking Status: Never a Smoker Recent Foreign Travel: No Contact w/Someone Who Travel: No Recent Infectious Disease Expo: No Immunizations Up To Date Tetanus Booster (TDap): Unknown Surgeries History of Surgeries: Yes Surgeries: Hysterectomy Respiratory History of Respiratory Disorde: Yes Respiratory Disorders: Asthma Cardiovascular History of Cardiac Disorders: Yes Cardiac Disorders: High Cholesterol, Hypertension Neurological History of Neurological Disord: Yes (TRIGEMINAL NEURALGIA) Reproductive System Hx Reproductive Disorders: No Sexually Transmitted Disease: No HIV/AIDS: No 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 Genitourinary History of Genitourinary Disor: No Gastrointestinal History of Gastrointestinal Di: No Musculoskeletal History of Musculoskeletal Dis: No Endocrine History of Endocrine Disorders: Yes Endocrine Disorders: Diabetes, Non-Insulin dep HEENT History of HEENT Disorders: No Cancer History of Cancer: No Psychosocial History of Psychiatric Problem: No Integumentary History of Skin or Integumenta: No Blood Transfusions History of Blood Disorders: No Adverse Reaction to a Blood Tr: No Review of Systems-General Musculoskeletal: back pain, other (pain to bilateal tapezius, left lower leg/ hernandez ) Psychiatric/Neurological: Denies Numbness, Denies Paresthesia, Denies Tingling Physical Exam-General Problems Physical Exam Vital Signs Vital Sign - Last 12Hours 09/24/17 09/24/17 09/24/17 10:14 14:08 16:15 Temp 98.0 Pulse 78 Resp 18 B/P (MAP) 197/97 Pulse Ox 98 O2 Delivery Room Air Capillary Refill : Less Than 3 SecondsLess Than 3 Seconds General Appearance: WD/WN, no apparent distress Neck: full range of motion, supple, normal inspection Peripheral Pulses: 2+ Left Dors-Pedis (L) Rectal: deferred Back: other (right paraspinal pain over L1-2) Extremities: other (ecchymosis to left leg, calf, compartements soft, mild tendeness) Neurologic/Psychiatric: no motor/sensory deficits, alert, normal mood/affect, oriented x 3 Skin: normal color, warm/dry Comments imaging reviewed: ct shows possibly chronic left L1 TP fracture and right L2 TP fractue without displacement Assessment/Plan Assessment/Plan Admission Diagnosis/Plan assessment: back pain TP fractures of L1 and L2 lumbar spondylosis Plan: discussed conservative treatment for TP fracture no surgical intervention or brace needed may evaluate and treat for lumbar stenosis when recovers if symptomatic may follow up in clinic in 2 weeks Clinical Quality Measures DVT/VTE Risk/Contraindication: Risk Factor Score Per Nursin RFS Level Per Nursing on Admit: 2=Moderate TERE GEORGE Sep 25, 2017 09:46
[2017-09-25] MEDS ORDERED: HYDR-757 PO (09:56)
[2017-09-25] MEDS ORDERED: CEPH-507 PO (09:56)
[2017-09-25] MEDS ORDERED: OXYC-197 PO (10:06)
--- NOTE | 2017-09-25 10:08 | Discharge Inst-Simple/Standard ---
Discharge Inst-Standard Discharge Medications New, Converted or Re-Newed RX: RX on Chart Patient Instructions/Follow Up Plan of Care/Instructions/FU: F/U with as arranged. F/U with Dr. Rollins to optimize her HTN control Activity as Tolerated: Yes Discharge Diet: ADA Diet Planned Outpatient Orders/Ref. Pneu Vac Indicated: Yes ALEJANDRO RODRIGUEZ MD Sep 25, 2017 10:08 am
[2017-09-25 10:42] VITALS: BP 185/87
[2017-09-25] MEDS ORDERED: LACTOBACILLUS Acidoph/Bulgar (LACTINEX/FLORANEX) TAB PO SCH (11:00)
[2017-09-25] MEDS ORDERED: metFORMIN 500 MG (GLUCOPHAGE) TAB PO SCH (12:00)
--- NOTE | 2017-09-27 17:08 | History & Physicial ---
History of Present Illness History of Present Illness Reason for visit/HPI Sustained laceration of the upper lip and fracture of the visible bone resulting from a fall, when she tripped, coming down her stairs at home. Evaluation in the emergency room has revealed fracture of the transverse processes of L1 and L2 vertebra as well. The laceration of the lip has been sutured by the oromaxillary surgeon in the emergency room. She has been admitted for pain control and observation Date of Admission Sep 24, 2017 at 14:22 Date Seen by Provider: Sep 24, 2017 Time Seen by Provider: 17:50 I consulted on this patient on 09/24/17 Attending Physician Leilani Rollins DO Admitting Physician Malik Antoine M.D Consult Allergies and Home Medications Allergies Uncoded Allergies: SULFA (Allergy, Unknown, 12/09/12) Home Medications Albuterol Sulfate 18 Gm Hfa.aer.ad, 2 PUFF IH Q6H PRN for SHORTNESS OF BREATH, ( Reported) Aspirin 81 Mg Tablet.dr, 81 MG PO DAILY, (Reported) Cephalexin 500 Mg Capsule, 500 MG PO QID, #20 Prescribed by: FEDERICA ADAM on 09/25/17 0956 Fluticasone/Salmeterol 1 Each Blst.w.dev, 1 PUFF IH BID, (Reported) Ipratropium/Albuterol Sulfate 3 Ml Ampul.neb, 1 VIAL IH BID PRN for SHORTNESS OF BREATH, (Reported) L.acidoph & Paracasei,B.lactis 1 Each Capsule, 1 CAP PO AC, (Reported) Lifitegrast 1 Each Droperette, 1 DROP OU BID, (Reported) Loratadine 10 Mg Tablet, 10 MG PO DAILY, (Reported) Meloxicam 15 Mg Tablet, 15 MG PO DAILY, (Reported) Metformin HCl 500 Mg Tablet, 500 MG PO 1200, (Reported) Metoprolol Succinate 200 Mg Tab.er.24h, 200 MG PO DAILY, (Reported) [place]-3/Dha/Epa/Fish Oil 1 Each Capsule, 2,000 MG PO DAILY, (Reported) TAKES 2 (1,000 MG) CAPSULES Omeprazole 20 Mg Capsule.dr, 20 MG PO DAILY, (Reported) Oxycodone HCl/Acetaminophen 1 Each Tablet, 1-2 TAB PO Q4H PRN for PAIN-MILD TO MODERATE, #40 Prescribed by: MALIK ANTOINE on 09/25/17 1006 Simvastatin 40 Mg Tablet, 40 MG PO HS, (Reported) Ubidecarenone 100 Mg Capsule, 100 MG PO DAILY, (Reported) [Real Dose Nutrition] , 1 CAP PO AC, (Reported) Past Xlyiaoa-Dvilpl-Wuuous Hx Patient Social History Marrital Status: Employed/Student: employed Alcohol Use: Denies Use Recreational Drug Use: No Smoking Status: Never a Smoker Physical Abuse Screen: No Sexual Abuse: No Recent Foreign Travel: No Contact w/other who traveled: No Recent Infectious Disease Expo: No Immunizations Up To Date Tetanus Booster (TDap): Unknown Surgeries Yes Hysterectomy Respiratory Yes Cardiovascular Yes High Cholesterol, Hypertension Neurological Yes (TRIGEMINAL NEURALGIA) Reproductive System Hx Reproductive Disorders: No Sexually Transmitted Disease: No HIV/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 Genitourinary No Gastrointestinal No Musculoskeletal No Endocrine History of Endocrine Disorders: Yes Endocrine Disorders: Diabetes, Non-Insulin dep HEENT History of HEENT Disorders: No Cancer No Psychosocial History of Psychiatric Problem: No Integumentary History of Skin or Integumenta: No Blood Transfusions History of Blood Disorders: No Adverse Reaction to a Blood Tr: No Constitutional: no symptoms reported EENTM: see HPI Respiratory: no symptoms reported Gastrointestinal: no symptoms reported Genitourinary: no symptoms reported Musculoskeletal: back pain Skin: see HPI Psychiatric/Neurological: Anxiety Physical Exam Vital Signs Vital Sign - Last 12Hours 09/24/17 09/24/17 09/24/17 10:14 14:08 16:15 Temp 98.0 Pulse 78 Resp 18 B/P (MAP) 197/97 Pulse Ox 98 O2 Delivery Room Air Capillary Refill : Less Than 3 SecondsLess Than 3 Seconds General Appearance: Anxious HEENT: Other Neck: Normal Inspection Respiratory: Lungs Clear Cardiovascular: Regular Rate, Rhythm Gastrointestinal: Non Tender, Soft Rectal: Deferred Back: Other Neurologic/Psychiatric: Alert, Oriented x3 Skin: Warm/Dry Comments 3 cm laceration of the upper lip, layered closure by the OROMAXILLARY surgeon. Nasal fracture, recommendation of management by oromaxillary surgeon, . Tenderness over the paraspinal region along the lumbar vertebra. Ecchymosis over the left anterior leg. No evidence of compartment syndrome Assessment/Plan Assessment and Plan Lady with laceration of the upper lip. Nasal fracture. Fracture of the transverse processes of L1 and L2 vertebra. Pain management as required. Orthopedic evaluation pending. Problems: Clinical Quality Measures DVT/VTE Risk/Contraindication: Risk Factor Score Per Nursin RFS Level Per Nursing on Admit: 2=Moderate MALIK NATOINE MD Sep 27, 2017 17:08
--- NOTE | 2017-09-27 17:17 | Progress Note (SOAP) ---
Subjective Date Seen by Provider: Sep 25, 2017 Time Seen by Provider: 08:45 Subjective/Events-last exam Pain control improved. Patient is concerned about stuffy nose and I have requested the nursing staff to contact Dr. Davis. Review of Systems General: No Chills, No Night Sweats, No Fatigue, No Malaise HEENT: Sinus Congestion, Other Pulmonary: No Dyspnea, No Cough, No Pleuritic Chest Pain Cardiovascular: No: Chest Pain, Palpitations, Orthopnea, Paroxysmal Noc. Dyspnea, Edema, Lt Headedness Gastrointestinal: No: Nausea, Vomiting, Abdominal Pain, Diarrhea, Constipation , Melena, Hematochezia Genitourinary: No Dysuria, No Frequency, No Incontinence, No Hematuria, No Retention Musculoskeletal: back pain, leg pain Neurological: No: Weakness, Numbness, Incoordination, Change in speech, Confusion, Seizures, Other Objective Exam Capillary Refill : Less Than 3 SecondsLess Than 3 Seconds General Appearance: No Apparent Distress HEENT: Other Neck: Normal Inspection Respiratory: Lungs Clear Cardiovascular: Regular Rate, Rhythm Gastrointestinal: non tender, soft Extremity: Other Neurologic/Psychiatric: Alert, Oriented x3 Skin: Warm/Dry Other comments Ecchymosis over the left leg much improved. Stuffiness of the nose resolved. Conservative measures recommended regarding the fracture of the lumbar transverse process. Could be discharged Assessment/Plan Assessment/Plan Assess & Plan/Chief Complaint Nasal fracture. Laceration of upper lip. Fracture of the transverse processes of L1 and L2 vertebra. Final Diagnosis Nasal fracture, nondisplaced. Laceration of upper lip. Fracture of transverse process of lumbar vertebra Clinical Quality Measures DVT/VTE Risk/Contraindication: Risk Factor Score Per Nursin RFS Level Per Nursing on Admit: 2=Moderate ALEJANDRO RODRIGUEZ MD Sep 27, 2017 17:17
== END 2017-09-25 10:07 | disposition home or self-care (01) ==
LOC: EDUNIT# 10:14 → ER 10:15 → INTOOBSV 13:32 → 4TH 13:32 → UNDOADMOB 13:32 → 4TH 14:22 → UNDODISOB 09-25 12:32
PROVIDERS: ADMIT Surgery; ATTEND Family Medicine
DX: S01.511A Laceration without foreign body of lip, initial encounter (principal); S02.2XXA Fracture of nasal bones, initial encounter for closed fracture; S32.028A Other fracture of second lumbar vertebra, initial encounter for closed fracture; Z23 Encounter for immunization; S80.211A Abrasion, right knee, initial encounter; S80.212A Abrasion, left knee, initial encounter; S50.812A Abrasion of left forearm, initial encounter; S80.12XA Contusion of left lower leg, initial encounter; R91.1 Solitary pulmonary nodule; I10 Essential (primary) hypertension; E78.00 Pure hypercholesterolemia, unspecified; E11.9 Type 2 diabetes mellitus without complications; M47.816 Spondylosis without myelopathy or radiculopathy, lumbar region; Z79.84 Long term (current) use of oral hypoglycemic drugs; Z79.899 Other long term (current) drug therapy; Z90.710 Acquired absence of both cervix and uterus; W10.9XXA Fall (on) (from) unspecified stairs and steps, initial encounter; Y99.8 Other external cause status
CPT/HCPCS: 12051; 36415; 40654; 70450; 70486; 71010; 71260; 72125; 72128; 72131; 72170; 73030; 73562; 73590; 74177; 80053; 85025; 85610; 85730; 90715; 93041; G0378

== ENCOUNTER → 2019-02-21 | Outpatient (CLI) | payer BC ==
[~2019-02-21] MED LIST changes: +ALBU18HF2 IH; +ASPI-983 PO; +CEPH-507 PO; +HYDR-4226 PO; +IPRA3AMP31 IH; +L.AC1CAP6 PO; +LIFI1DRO OU; +MELO15TA39 PO; +METF-397 PO; +METO200T48 PO; +OMEG-160 PO; +OXYC1TAB87 PO; +UBID100C44 PO; +[UNRECOGNIZED DRUG - OTHER] PO
--- NOTE | 2019-02-21 15:36 | Diagnostic Imaging Report ---
PROCEDURE: MRI lumbar spine. TECHNIQUE: Multiplanar, multisequence MRI of the lumbar spine was performed without contrast. INDICATION: Low-back pain and left leg pain, fall in August 2018. COMPARISON: No prior studies are available for comparison. FINDINGS: Curvature and alignment of the lumbar spine is normal. The vertebral body heights are well maintained. The marrow signal intensity is normal. No geographic marrow lesion or acute compression fracture is seen. There is some mild generalized degenerative disc disease with variable disc space narrowing and desiccation. The conus appears unremarkable at approximately the T12 level. T12-L1: Endplate osteophytes indent the ventral thecal sac but central canal remains widely patent. Neural foramina are widely patent. There are some degenerative facet changes with ligamentous thickening noted. L1-2: Broad-based disc/osteophyte complex indents the ventral thecal sac. Central canal remains patent. Neural foramina are patent. L2-3: Broad-based disc/osteophyte complex is noted. There is also ligamentous thickening and facet changes creating some trefoil configuration of the sac. There is mild narrowing of the central canal. Neural foramina are patent. L3-4: Ligamentous thickening and facet changes with broad-based disc/osteophyte complex is noted flattening the ventral thecal sac. Central canal remains patent. Neural foramina are patent. L4-5: There is some ligamentous thickening and broad-based disc/osteophyte complex as well as facet changes. This does result in moderate trefoil central canal stenosis. There is narrowing of the bilateral lateral recesses as well as moderate bilateral neural foraminal stenosis. L5-S1: Central canal is patent. Neural foramina are patent. Paraspinous tissues are unremarkable. IMPRESSION: Lumbar spondylosis with multilevel central canal, lateral recess and neural foraminal narrowing described level by level above. No acute compression fracture is detected. Dictated by: Dictated on workstation # [id number]
== END ==
LOC: RAD 13:45
PROVIDERS: ATTEND Family Medicine
DX: M47.26 Other spondylosis with radiculopathy, lumbar region (principal); M48.061 Spinal stenosis, lumbar region without neurogenic claudication; M25.78 Osteophyte, vertebrae; M51.36 Other intervertebral disc degeneration, lumbar region; M47.25 Other spondylosis with radiculopathy, thoracolumbar region
CPT/HCPCS: 72148